=== PATIENT | male | born 1995 | race Caucasian/White ===

== ENCOUNTER 2019-11-20 03:27 | Emergency (ER) | payer MEDICAID ==
[~2019-11-20] VITALS: Ht 172.7 cm; Wt 73.0 kg
[2019-11-20] MEDS ORDERED: cloNIDine HCL 0.1 MG TAB PO ONE (03:45)
[2019-11-20 05:08] LABS: Urine Bacteria NONE SEEN /hpf (None Seen); Urine Blood Negative /uL (Negative); Urine Mucus MANY (None Seen); Urine Specific Gravity 1.041 (1.001-1.035); Urine WBC 2 /hpf (0 - 3)
[2019-11-20 05:10] LABS: Alcohol, Urine < 3.0 mg/dL (0-10); Amphetamine Screen, Urine POSITIVE (NEGATIVE); Barbiturate Scree,Urine NEGATIVE (NEGATIVE); Benzodiazephine Screen, Urine NEGATIVE (NEGATIVE); Cannabinoid Screen, Urine POSITIVE (NEGATIVE); Cocaine Screen, Urine NEGATIVE (NEGATIVE); Phencyclidine Screen, Urine NEGATIVE (NEGATIVE)
[2019-11-20 05:18] LABS: Opiate Scree,Urine NEGATIVE (NEGATIVE)
[2019-11-20 07:25] LABS: Basophils # (auto) 0 10 ^3/uL (0-0.2); Basophils % (auto) 0.1 % (0.0-2.0); Eosinophils # (auto) 0 10 ^3/uL (0-0.8); Hematocrit 49.6 % (41.0-53.0); Hemoglobin 17.1 g/dL (13.5-17.5); Lymphocytes # (auto) 0.6 10 ^3/uL (0.4-5.4); Lymphocytes % (auto) 5.6 % (10.0-50.0); Mean Corpuscular Hemoglobin 31.8 pg (28.0-32.0); Mean Corpuscular Hgb Conc. 34.5 g/dL (32.0-36.0); Mean Corpuscular Volume 92.2 fL (80.0-100.0); Monocytes # (auto) 0.5 10 ^3/uL (0-1.3); Monocytes % (auto) 4.1 % (0.0-12.0); Neutrophils # (auto) 10.2 10 ^3/uL (1.6-8.6); Neutrophils % (auto) 90.2 % (37.0-80.0); Platelet Count (auto) 325 10^3/uL (140-450); Red Blood Cells 5.38 10^6/uL (4.5-5.90); Red Cell Distribution Width 13.1 % (11.8-14.3); White Blood Cell 11.3 10^3/uL (4.4-10.8)
[2019-11-20 07:41] LABS: Albumin 5.4 g/dL (3.4-5.0); Calcium 9.8 mg/dL (8.5-10.1); Magnesium 2.8 mg/dL (1.6-2.6); Potassium 3.5 mmol/L (3.5-5.1)
[2019-11-20 07:54] LABS: BUN/Creatinine Ratio 16.5; Total Protein 9.1 g/dL (6.4-8.2)
[2019-11-20] MEDS ORDERED: PANTOPRAZOLE 40 MG TAB PO ONE (08:30)
[2019-11-20] MEDS ORDERED: PANTOPRAZOLE 40 MG/10 ML VIAL INJ IV ONE (08:30)
[2019-11-20] MEDS ORDERED: cefTRIAXone W LIDOCAINE 1 GM IM IM ONE (08:30)
[2019-11-20] MEDS ORDERED: cefTRIAXone SOD 1,000 MG VL ONE (08:46)
[2019-11-20] MEDS ORDERED: LIDOCAINE 1% HCL (LOCAL ANESTH.) INJ 20ML MDV ONE (08:47)
[2019-11-20 08:58] VITALS: BP 149/99
== END 2019-11-20 09:14 | disposition home or self-care (01) ==
LOC: ER 03:33
DX: K20.9 Esophagitis, unspecified (principal); I10 Essential (primary) hypertension; F12.10 Cannabis abuse, uncomplicated; F15.90 Other stimulant use, unspecified, uncomplicated; F17.210 Nicotine dependence, cigarettes, uncomplicated
CPT/HCPCS: 36415; 74176; 80053; 80307; 81001; 82150; 83690; 83735; 85025; 96372; 99284; J0696; J2001

== ENCOUNTER 2023-04-27 01:01 | Emergency (ER) | payer MEDICAID, OTHER ==
[~2023-04-27] VITALS: Ht 172.7 cm; Wt 72.7 kg
[2023-04-27 01:05] VITALS: BP 144/99; PULSE 78; RESP 16; TEMP 97.7; O2SAT 99
[2023-04-27] MEDS ORDERED: HYDROcodone-ACET 5/325MG TAB PO ONE (02:15)
[2023-04-27] MEDS ORDERED: ceFAZolin IM 1GM/2.5ML STERILE WATER IM ONE (02:15)
[2023-04-27] MEDS ORDERED: ceFAZolin 1GM VL IM SCH (02:45)
[2023-04-27] MEDS ORDERED: STERILE WATER 10 ML ONE (03:08)
[2023-04-27] MEDS ORDERED: HYDR-4902 PO (03:32)
[2023-04-27] MEDS ORDERED: CLIN300C70 PO (03:32)
== END 2023-04-27 04:22 | disposition home or self-care (01) ==
LOC: ER 01:01
DX: S62.631B Displaced fracture of distal phalanx of left index finger, initial encounter for open fracture (principal); F17.210 Nicotine dependence, cigarettes, uncomplicated; F12.10 Cannabis abuse, uncomplicated; W26.8XXA Contact with other sharp object(s), not elsewhere classified, initial encounter; Y93.89 Activity, other specified; Y92.89 Other specified places as the place of occurrence of the external cause; Y99.8 Other external cause status
CPT/HCPCS: 29130; 73140; 96372; 99283; J0690